=== PATIENT | female | born 1945 | race Caucasian/White ===

== ENCOUNTER 2017-10-03 15:46 | Emergency (ER) | payer OTHER ==
--- NOTE | 2017-10-03 15:59 | PDOC ---
Rapid Medical Evaluation Time Seen by Provider: 10/03/17 15:54 Medical Evaluation: 10/03/17 15:54 Pt presents to the ED for feeling sick for the past two weeks. Diagnosed with an UTI two weeks ago and finished a course of abx (macrobid) yesterday and followed up with her PCP who gave a urology follow up. Still with urinary discomfort. Admits to chills, and body aches, low back pain. Denies fevers, chills, n/v/d. Exam: (-) CVA tenderness, Suprapubic discomfort. Orders: UA, UC Pt. to proceed to ED for further evaluation Discharge Disposition - Diagnosis Suprapubic tenderness - Referrals - Patient Instructions - Post Discharge Activity
[2017-10-03 16:00] VITALS: BMI 29.0
[2017-10-03 16:22] LABS: URINE APPEARANCE CLEAR; URINE BILIRUBIN NEGATIVE (<2.0 mg/dL); URINE COLOR LTYELLOW; URINE GLUCOSE (UA) NEGATIVE (NEGATIVE); URINE KETONE NEGATIVE (NEGATIVE); URINE LEUK ESTERASE TRACE (NEGATIVE); URINE NITRITE NEGATIVE (NEGATIVE); URINE PROTEIN NEGATIVE (NEGATIVE); URINE UROBILINOGEN NEGATIVE mg/dL (0.2-1.0)
--- NOTE | 2017-10-03 16:22 | PDOC ---
History of Present Illness - General Stated Complaint: LT SIDE PAIN Time Seen by Provider: 10/03/17 15:54 History Source: Patient Exam Limitations: No Limitations - History of Present Illness Initial Comments: 10/03/17 16:44 72 year old female with PMH penicillin induced Nephritis, chronic cystitis presents to ED today complaining of persisting suprapubic pain with left flank pain, mausea and chills. She denies fever, vomiting, chest pain, palpitations, lightheadedness, shortness of breath. She was diagnosed with a UTI x2 weeks ago , finished her course of Macrobid yesterday. She was given a referral for a urologist but has not been able to see him yet, she does not know her doctor's name. 10/03/17 18:27 Past History - Past Medical History Allergies/Adverse Reactions: Allergies Allergy/AdvReac Type Severity Reaction Status Date / Time Penicillins Allergy Verified 10/03/17 15:57 Home Medications: Ambulatory Orders Sulfamethoxazole/Trimethoprim [Bactrim Ds -] 1 tab PO BID 14 Days #28 tablet - Suicide/Smoking/Psychosocial Hx Smoking History: Never smoked Hx Alcohol Use: No Drug/Substance Use Hx: No Review of Systems - Review of Systems Able to Perform ROS?: Yes Comments:: 10/03/17 16:47 General: admits to chills. denies fever, night sweats, generalized weakness. HEENT: denies sore throat, rhinorrhea, ear pain. Heart: denies chest pain, palpitations, syncope, lower extremity swelling, lightheadedness. Respiratory: denies shortness of breath, cough, sputum production, hematemesis. Abdomen: admits to suprapubic pain, nausea. denies vomiting, diarrhea, constipation, blood in stool. : admits to dysuria. denies hematuria. Musculoskeletal: denies joint pain, muscle pain, joint swelling. Neurological: denies headache, numbness, tingling. Skin: denies rash, laceration, abrasion. *Physical Exam - Vital Signs Last Vital Signs Temp Pulse Resp BP Pulse Ox 97.7 F 77 16 139/76 99 10/03/17 15:58 10/03/17 15:58 10/03/17 15:58 10/03/17 15:58 10/03/17 15:58 - Physical Exam Comments: 10/03/17 16:48 Appearance: comfortable, non-toxic appearing. HEENT: head is normocephalic, atraumatic. EOMI. PERRLA. Neck: supple without lymphadenopathy Heart: regular rhythm. Lungs: clear to auscultation bilaterally. no crackles, rhonchi or wheezing. no stridor. Abdomen: soft. flat. mild suprapubic tenderness to palpation. normal bowel sounds. no rebound, guarding, masses. Left CVA tenderness positive. mild left flank tenderness to palpation. Extremities: Peripheral pulses intact and equal. No lower extremity edema. Neurological: Alert. Oriented x3. CN 2-12 grossly intact. Moves all four extremities. Skin: no rash to left flank area. ED Treatment Course - LABORATORY CBC & Chemistry Diagram: 10/03/17 17:07 10/03/17 17:07 Medical Decision Making - Medical Decision Making 10/03/17 16:50 72 year old female with PMH chronic cystitis, penicillin induced nephritis, chronic UTIs presents to ED today complaining of persisting suprapubic tenderness associatde with dysuria, nausea, chills, left flank pain. Diagnosed with UTI x2 weeks ago, completed course of Macrobid, but symptoms persisting. Initial Vital Signs Temp Pulse Resp BP Pulse Ox 97.7 F 77 16 139/76 99 10/03/17 15:58 10/03/17 15:58 10/03/17 15:58 10/03/17 15:58 10/03/17 15:58 No hypotension. No tachycardia. Afebrile. Pt has outpatient urology appt for 10/10/17. She does not know the name of her doctor. PCP - Dr. Adarsh Woods. Pending CBC, CMP, UA, UC. 10/03/17 16:53 UA trace leukocyte esterase. *DC/Admit/Observation/Transfer Diagnosis at time of Disposition: Urinary tract infection - Discharge Dispostion Disposition: HOME Condition at time of disposition: Stable Decision to Admit order: No - Prescriptions Prescriptions: Sulfamethoxazole/Trimethoprim [Bactrim Ds -] 1 tab PO BID 14 Days #28 tablet - Referrals - Patient Instructions Printed Discharge Instructions: DI for Urinary Tract Infection (UTI) Additional Instructions: You were seen today for continued suprapubic pain, dysuria and development of left flank pain. You were diagnosed with a non-resolved UTI with Nitrofurantoin treatment. Your blood work was normal. Your urine analysis revealed a small UTI. I have prescribed you with a new antibiotic that is stronger, and I have sent the prescription to your pharmacy. Please take this medication two times a day. Please stay hydrated and drink lots of water, no soda or coffee or tea. Please follow up with your primary care doctor within 7 days, and bring the paperwork given to you today with you. Call your urologist,Dr. Brice Vasquez, and let them know you were seen today in the Emergency Department. Keep your appointment with your urologist, Dr. Brice Vasquez, and bring the paperwork given to you today with you. Please return to the emergency department for fever, chills, nausea, vomiting, shortness of breath, lightheadedness. Please return to the emergency department for any other new, worsening, or concerning symptoms. - Post Discharge Activity
[2017-10-03 17:38] LABS: BASO % 0.5 % (0-2.0); EOS % 2.6 % (0-4.5); HEMOGLOBIN 12.2 GM/dL (10.7-15.3); LYMPH % 35.8 % (8-40); MCH 28.1 pg (25.7-33.7); MCHC 33.8 g/dl (32.0-36.0); MONO % 9.8 % (3.8-10.2); NEUT % 51.3 % (42.8-82.8); PLATELET COUNT 258 K/MM3 (134-434); RBC 4.33 M/mm3 (3.60-5.2); RDW 13.4 % (11.6-15.6); WHITE BLOOD COUNT 6.8 K/mm3 (4.0-10.0)
[2017-10-03 17:48] LABS: ALBUMIN 3.6 g/dl (3.4-5.0); ANION GAP 7 (8-16); BILIRUBIN,TOTAL 0.2 mg/dL (0.2-1.0); BLOOD UREA NITROGEN 15 mg/dL (7-18); CALCIUM 8.7 mg/dL (8.5-10.1); CHLORIDE 108 mmol/L (98-107); CO2 26 mmol/L (21-32); GLUCOSE,RANDOM 120 mg/dL (74-106); POTASSIUM 4.4 mmol/L (3.5-5.1); SGOT/AST 17 U/L (15-37); SGPT/ALT 28 U/L (12-78); SODIUM 141 mmol/L (136-145); TOT PROT 7.1 g/dl (6.4-8.2)
[2017-10-03 17:49] LABS: ALK PHOS 94 U/L (45-117)
--- NOTE | 2017-10-03 17:55 | PDOC ---
Attending Attestation - HPI HPI: 10/03/17 19:08 72 year old female with history of nephritis, recurrent nephritis, returns to the ED for persistent left flank pain x 2 weeks. He was seen in the ED and started on PO abx but pain has not resolved. +Chills, no fever, vomiting, hematuria. - Physicial Exam PE: 10/03/17 19:11 Constitutional: Awake, alert, oriented. No acute distress. Head: Normocephalic. Atraumatic Eyes: PERRL. EOMI. Conjunctivae are not pale. ENT: Mucous membranes are moist and intact. Posterior pharynx without exudates or erythema. Uvula midline. Neck: Supple. Full ROM. No lymphadenopathy. Cardiovascular: Regular rate. Regular rhythm. S1, S2 regular. Distal pulses are 2+ and symmetric. Pulmonary/Chest: No evidence of respiratory distress. Clear to auscultation bilaterally No wheezing, rales or rhonchi. Abdominal: Soft and non-distended. +Suprapubic ttp, mild left flank tenderness to palpation. No rebound, guarding or rigidity. No organomegaly. No palpable masses. Good bowel sounds. Back: No CVA tenderness. Musculoskeletal: No edema. No cyanosis. No clubbing. Full range of motion in all extremities. Nocalf tenderness. Radial/pedal pulses are intact and 2+ bilaterally Skin: Skin is warm and dry. No petechiae. No purpura. Neurological: Alert and oriented to person, place, and time. Cranial nerves II -XII are grossly intact. Normal speech. Strength is grossly symmetric. No sensory deficits. Psychiatric: Good eye contact. Normal interaction, affect and behavior. - Medical Decision Making 10/03/17 19:13 Documentation prepared by Zamzam Kerns, acting as medical office administrator for Kitty Soto DO. <Zamzam Kerns - Last Filed: 10/03/17 19:08> - Resident Resident Name: Lynn Duncan - ED Attending Attestation I have performed the following: I have examined & evaluated the patient, The case was reviewed & discussed with the resident, I agree w/resident's findings & plan, Exceptions are as noted - Medical Decision Making 10/03/17 17:55 I, Dr. Kitty Soto DO, attest that this document has been prepared under my direction and personally reviewed by me in its entirety. I further attest, that it accurately reflects all work, treatment, procedures and medical decision -making performed by me. 10/03/17 20:51 a/p: 72yo female with L flank pain and urinary freq -pt with partially treated UTI with macrobid -still with pain -no fevers, no elevated wbc -will treat for pyelo and broaden abx to bactrim ds -pt has an appt next week with urology Dr. Vasquez -labs sent 10/03/17 20:52 pt tolerated po intake in the ED pt ambulatory in the ED pt requesting to go home will treat outpt pyelo discussed in full detail all reasons to reutrn to the ED and need for follow up answered all questions pt reqesting to attempt treatment as an outpt and understands all reasons to return to the ED for IV abx <Kitty Soto - Last Filed: 10/03/17 20:55>
[2017-10-03] MEDS ORDERED: SULFAMETHOXAZOLE/TRIMETHOPRIM 800MG/160MG D.S. TABLET PO ONE (18:09)
[2017-10-03] MEDS ORDERED: SULFAMETHOXAZOLE/TRIMETHOPRIM 800MG/160MG D.S. TABLET ONE (18:31)
[2017-10-03 18:39] VITALS: BP 128/69; PULSE 65; TEMP 98.2
[2017-10-03 20:16] LABS: EPI CELLS RARE /HPF (FEW); URINE BACTERIA RARE /hpf (NONE SEEN)
== END 2017-10-03 18:39 | disposition home or self-care (01) ==
LOC: JER 15:46
DX: N39.0 Urinary tract infection, site not specified (principal); N05.9 Unspecified nephritic syndrome with unspecified morphologic changes; Z88.0 Allergy status to penicillin
CPT/HCPCS: 36415; 80053; 81003; 81015; 85025; 87086; 93970-TC; 99282-25

== ENCOUNTER 2017-10-05 11:59 | Emergency (ER) | payer OTHER ==
[2017-10-05 12:05] VITALS: BP 138/65; PULSE 76; TEMP 98; BMI 29.0
--- NOTE | 2017-10-05 12:19 | PDOC ---
History of Present Illness - General Chief Complaint: Urinary Problem Stated Complaint: REVISIT Time Seen by Provider: 10/05/17 12:13 History Source: Patient Exam Limitations: No Limitations - History of Present Illness Travel History: No Initial Comments: 10/05/17 12:19 pt with c/o feeling anxious and heart palpitations 2 days ago after taking Bactrim. Pt states this is a typical panic attack . Pt being treated for UTI seen in ER 10/03/17. Pt has chronic UTI last took macrodantin 2 weeks ago . Today pt is having no fever no chills, c/o left flank pain, with movement and to touch. no abd pain or vomiting, mild discomfort with urination. no palpitations today. 10/05/17 13:03 10/05/17 13:05 Past History - Past Medical History Allergies/Adverse Reactions: Allergies Allergy/AdvReac Type Severity Reaction Status Date / Time Penicillins Allergy Verified 10/05/17 12:05 Home Medications: Ambulatory Orders Phenazopyridine HCl [Pyridium] 200 mg PO TID #6 tablet 10/05/17 COPD: No HTN: Yes Psychiatric Problems: Yes (anxiety, panic attacks) - Suicide/Smoking/Psychosocial Hx Smoking History: Never smoked Hx Alcohol Use: No Drug/Substance Use Hx: No Abd/GI Specific PMHX - Complaint Specific PMHX Colitis: No Diverticulitis: No Review of Systems - Review of Systems Able to Perform ROS?: Yes Is the patient limited Urdu proficient: No Constitutional: No: Symptoms Reported HEENTM: No: Symptoms Reported Respiratory: No: Symptoms reported Cardiac (ROS): No: Symptoms Reported ABD/GI: No: Symptoms Reported : No: Symptoms Reported Musculoskeletal: Yes: Symptoms Reported *Physical Exam - Vital Signs Last Vital Signs Temp Pulse Resp BP Pulse Ox 98 F 76 18 138/65 99 10/05/17 12:02 10/05/17 12:02 10/05/17 12:02 10/05/17 12:02 10/05/17 12:02 - Physical Exam General Appearance: Yes: Nourished, Appropriately Dressed HEENT: positive: EOMI, JAVIER Respiratory/Chest: positive: Lungs Clear, Normal Breath Sounds Cardiovascular: positive: Regular Rhythm, Regular Rate. negative: Tachycardia, Irregularly Irregular Gastrointestinal/Abdominal: positive: Normal Bowel Sounds, Soft. negative: Tender Musculoskeletal: positive: Other (soft tissue tender to deep palpation to the left flank/hip area , reproduced with movement ). negative: CVA Tenderness (R) , CVA Tenderness (L), Decreased Range of Motion, Muscle Spasm Extremity: positive: Normal Capillary Refill, Normal Inspection, Normal Range of Motion Integumentary: positive: Normal Color, Dry, Warm Neurologic: positive: Fully Oriented, Alert, Normal Mood/Affect, Normal Response , Motor Strength 5/5 Medical Decision Making - Medical Decision Making 10/05/17 13:04 will obtain repeat UA and culture pt is afebrile non toxic pain is reproducable with touch and with movement of the soft tissue, neg CVA tenderness stable vitals pt has apt saturday with her urologist *DC/Admit/Observation/Transfer Diagnosis at time of Disposition: Dysuria - Discharge Dispostion Disposition: HOME Condition at time of disposition: Good - Prescriptions Prescriptions: Phenazopyridine HCl [Pyridium] 200 mg PO TID #6 tablet - Referrals Referrals: Adarsh Woods MD [Primary Care Provider] - - Patient Instructions Additional Instructions: follow with your urologist Saturday as planned to follow with the urine culture drink pleanty of water avoid sugary drinks and foods take pyridium as directed for any bladder discomfort - Post Discharge Activity
[2017-10-05 12:42] LABS: URINE APPEARANCE CLEAR; URINE BILIRUBIN NEGATIVE (<2.0 mg/dL); URINE COLOR LTYELLOW; URINE GLUCOSE (UA) NEGATIVE (NEGATIVE); URINE KETONE NEGATIVE (NEGATIVE); URINE NITRITE NEGATIVE (NEGATIVE); URINE PROTEIN NEGATIVE (NEGATIVE); URINE UROBILINOGEN NEGATIVE mg/dL (0.2-1.0)
[2017-10-05 12:44] LABS: URINE LEUK ESTERASE 3+ (NEGATIVE)
[2017-10-05 12:47] LABS: EPI CELLS RARE /HPF (FEW)
== END 2017-10-05 13:32 | disposition home or self-care (01) ==
LOC: JERFT 11:59
DX: R30.0 Dysuria (principal); Z87.440 Personal history of urinary (tract) infections; F41.0 Panic disorder [episodic paroxysmal anxiety]; F41.9 Anxiety disorder, unspecified
CPT/HCPCS: 81003; 81015; 87086; 99281-25

== ENCOUNTER 2021-10-06 17:45 | Emergency (ER) | payer OTHER ==
[2021-10-06 18:12] VITALS: BP 164/76; PULSE 77; RESP 18; TEMP 97.2; BMI 30.2
[2021-10-06] MEDS ORDERED: ACETAMINOPHEN 1000 MG/100 ML BAG IVPB ONE (19:37)
[2021-10-06] MEDS ORDERED: FAMOTIDINE 20 MG/50 ML IVPB 20 MG/50 ML MG IVPB ONE ×2 (19:39→19:53)
[2021-10-06] MEDS ORDERED: MAG HYDROX/AL HYDROX/SIMETH 30 ML UNIT-DOSE CUP PO ONE (19:39)
[2021-10-06] MEDS ORDERED: ACETAMINOPHEN INJECTION 100 ML IVPB ONE (19:51)
[2021-10-06] MEDS ORDERED: MAG HYDROX/AL HYDROX/SIMETH 30 ML UNIT-DOSE CUP ONE (19:53)
[2021-10-06 20:30] LABS: BASO % 0.4 % (0-2.0); EOS % 1.2 % (0-4.5); HEMATOCRIT 38.2 % (32.4-45.2); LYMPH % 24.5 % (8-40); MCH 29.8 pg (25.7-33.7); MEAN CELL VOLUME 87.5 fl (80-96); MEAN PLT VOLUME 9.3 fl (7.5-11.1); MONO % 9.4 % (3.8-10.2); NEUT % 64.5 % (42.8-82.8); PLATELET COUNT 247 10^3/uL (134-434); RBC 4.37 M/mm3 (3.60-5.2); RDW 13.6 % (11.6-15.6); WHITE BLOOD COUNT 8.4 K/mm3 (4.0-10.0)
[2021-10-06 21:01] LABS: ALBUMIN 3.7 g/dl (3.4-5.0); BLOOD UREA NITROGEN 10.3 mg/dL (7-18); CALCIUM 8.9 mg/dL (8.5-10.1)
[2021-10-06 21:05] LABS: CREATININE 0.9 mg/dL (0.55-1.3)
[2021-10-06 21:06] LABS: BILIRUBIN,TOTAL 0.2 mg/dL (0.2-1); TOT PROT 7.4 g/dl (6.4-8.2)
== END 2021-10-06 21:53 | disposition left against medical advice (07) ==
LOC: JER 17:45
DX: R07.2 Precordial pain (principal)
CPT/HCPCS: 36415; 71045-TC-FY; 76705-TC; 80053; 83690; 84484; 85025; 93005; 93010; 99285-25